=== PATIENT | female | born 1930 | race Caucasian/White ===

== ENCOUNTER 2017-12-03 16:49 | Inpatient (IN) | payer OTHER ==
[2017-12-03 17:17] VITALS: BMI 27.3
[2017-12-10 14:19] VITALS: BP 120/60; PULSE 84; TEMP 98.9
== END 2017-12-10 15:33 | DRG 467 ==
LOC: JER 16:49 → JERBED 20:15 → J5S 12-04 21:14 → J6S 12-06 18:48
PROVIDERS: ADMIT Internal Medicine; ATTEND Internal Medicine
PROC: 0SWR0JZ Revision of Synthetic Substitute in Right Hip Joint, Femoral Surface, Open Approach (ICD-10-PCS; principal; 2017-12-06)
PROC: 0QS Lower Bones, Reposition (ICD-10-PCS; 2017-12-06)
PROC: 30253N1 (ICD-10-PCS; 2017-12-06)
DX: S72.8X2A Other fracture of left femur, initial encounter for closed fracture (principal); M97.01XA Periprosthetic fracture around internal prosthetic right hip joint, initial encounter; N17.9 Acute kidney failure, unspecified; C95.90 Leukemia, unspecified not having achieved remission; D62 Acute posthemorrhagic anemia; N39.0 Urinary tract infection, site not specified; W19.XXXA Unspecified fall, initial encounter; Y93.9 Activity, unspecified; Y92.128 Other place in nursing home as the place of occurrence of the external cause; Y99.9 Unspecified external cause status; G62.9 Polyneuropathy, unspecified; R33.9 Retention of urine, unspecified; K59.00 Constipation, unspecified; E87.5 Hyperkalemia; D72.829 Elevated white blood cell count, unspecified; N18.2 Chronic kidney disease, stage 2 (mild); D69.6 Thrombocytopenia, unspecified; E03.9 Hypothyroidism, unspecified; I12.9 Hypertensive chronic kidney disease with stage 1 through stage 4 chronic kidney disease, or unspecified chronic kidney disease; N18.9 Chronic kidney disease, unspecified
CPT/HCPCS: 36415; 36430; 71045-TC-FY; 73502-TC-RT; 73523-TC-FY; 73552-TC-RT-FY; 80048; 80053; 81003; 81015; 83735; 84100; 84484; 85025; 85027; 85610; 85730; 86850; 86900; 86901; 86922; 87040; 87086; 88300-TC; 93005; 93010; 93306-TC; 94760; 97116-GP; 97161-GP; 99284-25; 99285-25; J0131; J0475; J7030; P9038; P9058